=== PATIENT | female | born 1950 | race Caucasian/White ===

== ENCOUNTER 2023-03-06 09:21 | Emergency (ER) | payer MEDICARE ==
[~2023-03-06] VITALS: Ht 162 cm; Wt 79.0 kg
--- NOTE | 2023-03-06 10:30 | ED EENT ---
History of Present Illness General Chief Complaint: Ear Problems Stated Complaint: LT EAR AND UPPER JAW PAIN Nursing Triage Note: PT AMB TO FT WITH C/O L EAR PAIN AND L JAW PAIN STARTING ON FRIDAY. PT STATES SHE HAS TRIED MOTRIN AND HALF OF A 7.5 HYDROCODONE LAST NIGHT WITHOUT RELIEF. PT DENIES DENTAL ISSUES Source: patient Exam Limitations: no limitations (CHERELLE DOMÍNGUEZ MD) Source: patient Exam Limitations: no limitations (PADMINI MARIN) History of Present Illness Date Seen by Provider: Mar 06, 2023 (CHERELLE DOMÍNGUEZ MD) Time Seen by Provider: 10:10 Initial Comments Our patient is a 73 yo F who presented to the emergency department with a chief complaint of left jaw pain. She states that she first began to notice the soreness developing on Friday, when she began to experience pain when eating. The pain is described as a constant ache that is worsened by jaw movement and chewing. It is located just anterior to the ear and she states that she has also experienced tenderness in her neck since the onset of her symptoms. She has tried ibuprofen and hydrocodone with some relief of her symptoms but notes that the pain has continually worsened since its onset. She is now unable to sleep on her left side due to discomfort. In addition, she notes swelling at the site but no other concerning symptoms. She notes no inciting incident or previous occ urrences. In the past, she has been told that she grinds her teeth at night and indicates that she often catches herself clenching her teeth. She has experienced no recent illnesses, no history of dental disorders, and wears a retainer for teeth straightening. She has a previous medical history of type II DM, HTN, and hypercholesterolemia. She had a DXA scan a few years ago and was told that her results were normal and would require no medical treatment. Timing/Duration: gradual Severity: mild Location: facial (Left Jaw) Prearrival Treatment: over the counter meds Modifying Factors: Improves With Activity, Improves With Other (Palpation and eating worsen her pain) Associated Symptoms: No change in hearing, No cough, No fever, No tooth pain (PADMINI MARIN) Allergies and Home Medications Allergies Coded Allergies: codeine (Verified Allergy, Unknown, 03/06/23) morphine (Verified Allergy, Unknown, 03/06/23) Patient Home Medication List Home Medication List Reviewed: Yes (CHERELLE DOMÍNGUEZ MD) Amoxicillin/Potassium Clav (Amox Tr-K Clv 875-125 mg Tab) 875 Mg-125 Mg Tablet, 1 EACH PO BID Prescribed by: CHERELLE PEDERSEN on 03/06/23 1031 Hydrocodone/Acetaminophen (Hydrocodone-Acetamin 5-325 mg) 5 Mg-325 Mg Tablet, 1 TAB PO Q4H PRN for PAIN BREAKTROUGH Prescribed by: CHERELLE PEDERSEN on 03/06/23 1032 Review of Systems Review of Systems Constitutional: no symptoms reported; No chills, No fever Eyes: No Symptoms Reported; Denies Blurred Vision Ears: No Symptoms Reported; Denies Pain Nose: no symptoms reported Mouth: no symptoms reported, see HPI Throat: no symptoms reported, see HPI; denies painful swallowing, denies difficulty with fluids Respiratory: no symptoms reported; No cough Cardiovascular: no symptoms reported Gastrointestinal: no symptoms reported; No abdominal pain, No constipation, No diarrhea Musculoskeletal: joint pain (Left TMJ), joint swelling (Left TMJ and surrounding area), neck pain (Anterior, left) Skin: no symptoms reported; No change in color Neurological: No Symptoms Reported; Denies Headache, Denies Numbness Hematologic/Lymphatic: No Symptoms Reported Immunological/Allergic: no symptoms reported (PADMINI MARIN) All Other Systems Reviewed Negative Unless Noted: Yes (PADMINI MARIN) Past Gsylwql-Pseloa-Sntjfk Hx Patient Social History Tobacco Use?: No Use of E-Cig and/or Vaping dev: No Substance use?: No Alcohol Use?: No Pt feels they are or have been: No (CHERELLE DOMÍNGUEZ MD) Tobacco Use?: No Use of E-Cig and/or Vaping dev: No Substance use?: No Alcohol Use?: Yes Alcohol Frequency: Several times a month (PADMINI MARIN) Past Medical History Surgery/Hospitalization HX: DM, HTN, HLD (CHERELLE DOMÍNGUEZ MD) Surgeries: Yes Neurological (Spinal fusion) Respiratory: No High Cholesterol, Hypertension Diabetes, Non-Insulin dep Loss of Vision: Denies Hearing Impairment: Denies Cancer: No (PADMINI MARIN) Physical Exam Vital Signs Vital Signs - First Documented 03/06/23 09:32 Temp 36.5 Pulse 71 Resp 16 B/P (MAP) 166/65 (98) Pulse Ox 95 O2 Delivery Room Air (PADMINI MARIN) Height, Weight, BMI Height: '" Weight: lbs. oz. kg; 30.00 BMI Method: (CHERELLE DOMÍNGUEZ MD) General Appearance: WD/WN, no apparent distress Ears: left ear swelling (Anterior to the left ear); bilateral ear auricle normal, bilateral ear canal normal, bilateral ear TM normal Nose: normal inspection Mouth/Throat: normal mouth inspection, pharynx normal, mandibular swelling (Swelling in the area surrounding the temporomandibular joint) Neck: supple, normal inspection; No lymphadenopathy (R), No lymphadenopathy (L); tender lateral (Mild, left-sided) Cardiovascular: normal peripheral pulses, regular rate, rhythm, no edema, no gallop, no JVD, no murmur Respiratory: chest non-tender, lungs clear, normal breath sounds, no respiratory distress, no accessory muscle use Gastrointestinal: normal bowel sounds Neurologic/Psychiatric: alert, normal mood/affect, oriented x 3 Skin: normal color, warm/dry (PADMINI MARIN) Progress/Results/Core Measures Results/Orders Vital Signs/I&O 03/06/23 09:32 Temp 36.5 Pulse 71 Resp 16 B/P (MAP) 166/65 (98) Pulse Ox 95 O2 Delivery Room Air (PADMINI MARIN) Blood Pressure Mean: 98 Progress Progress Note : Progress Note Patient was interviewed and examined by me personally along with MS iman. Her swelling and pain seem to be focused over the temporomandibular joint, although she did have some swelling and tenderness extending down toward the angle of the jaw and into the neck. 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 However, parotitis was not completely ruled out. Patient was advised to treat TMJ. If symptoms continue to progress or she develop new symptoms such as fever, she should start the Augmentin antibiotics as prescribed. She was also advised to follow-up closely with her ice seller and/or dentist. See discharge instructions for further discussion. (CHERELLE DOMÍNGUEZ MD) Departure Impression Primary Impression: Temporomandibular joint (TMJ) pain Qualified Codes: M26.622 - Arthralgia of left temporomandibular joint Additional Impression: Swelling of left side of face Disposition: 01 HOME, SELF-CARE Condition: Stable Departure-Patient Inst. Decision time for Depature: 10:24 (CHERELLE DOMÍNGUEZ MD) Referrals: NO,LOCAL PHYSICIAN (PCP/Family) Primary Care Physician Patient Instructions: Parotitis, Temporomandibular joint (TMJ) disorders Add. Discharge Instructions: Your symptoms seem to be most consistent with TMJ pain. A less likely possibility is a parotid gland infection. For short-term relief of pain you may use ibuprofen up to 400 mg every 6 hours as needed. Take with food or milk to avoid stomach irritation and drink plenty of water to keep your kidney health optimal. For pain not controlled by ibuprofen or Aleve (naproxen), you may add either Tylenol (acetaminophen) up to 1000 mg every 6 hours or the hydrocodone/acetam inophen as prescribed. Use hydrocodone with caution as it may cause drowsiness. Do not drive or operate machinery while on hydrocodone. Hydrocodone may cause constipation, so you may wish to take a stool softener such as Colace while using hydrocodone. If inflammation and swelling becomes notably worse, you may be developing a parotid gland infection. In that case start the antibiotic as prescribed and follow-up with a primary care provider soon as possible. For evaluation of your temporomandibular joint, please follow-up with your ice seller and/or dentist as soon as possible. It may be worth contacting your ice seller by phone to discuss the situation prior to returning home. Avoid foods that require significant chewing. You may try ice and/or gentle heat on the joint to alleviate pain. A topical anesthetic such as topical benzocaine or lidocaine preparations may be helpful as well. Return to care if you have worsening symptoms despite following these instructions. Please read the attached information on TMJ and parotid gland infections. All discharge instructions reviewed with patient and/or family. Voiced understanding. Scripts Hydrocodone/Acetaminophen (Hydrocodone-Acetamin 5-325 mg) 5 Mg-325 Mg Tablet 1 TAB PO Q4H PRN for PAIN BREAKTROUGH, #15 TAB Prov: CHERELLE DOMÍNGUEZ MD 03/06/23 Amoxicillin/Potassium Clav (Amox Tr-K Clv 875-125 mg Tab) 875 Mg-125 Mg Tablet 1 EACH PO BID, #14 TAB Prov: CHERELLE DOMÍNGUEZ MD 03/06/23 Medical Student Attestation and Attending Note: I have personally interviewed and examined this patient along with Padmini Marin MS4. I have reviewed student documentation including history, physical, and assessments. I agree with the documentation except where otherwise noted. Exam: General: Alert, oriented, no acute distress, well developed HEENT: Tympanic membranes normal. Oropharynx normal. No apparent dental disease or abscess. Swelling and tenderness directly over the TMJ on the left. Swelling and tenderness extends somewhat inferiorly toward the angle of the jaw and into the neck. Focus of pain and swelling seems to be over the TMJ. Heart: Regular rate and rhythm without murmur Lungs: Clear to auscultation bilaterally with normal effort Neuropsych: Alert, oriented, no focal deficits Skin: Warm and dry without rashes (CHERELLE DOMÍNGUEZ MD) CHERELLE DOMÍNGUEZ MD Mar 06, 2023 10:30 PADMINI MARIN Mar 06, 2023 11:13
[2023-03-06] MEDS ORDERED: ACHD5005 PO (10:31)
[2023-03-06] MEDS ORDERED: AMOX1TAB12 PO (10:31)
[2023-03-06 10:59] VITALS: BP 166/65
== END 2023-03-06 11:00 | disposition home or self-care (01) ==
LOC: ER 09:25
DX: M26.622 Arthralgia of left temporomandibular joint (principal); R22.0 Localized swelling, mass and lump, head; Z88.5 Allergy status to narcotic agent
CPT/HCPCS: 99282